=== PATIENT | female | born 1965 | race Caucasian/White ===

== ENCOUNTER → 2020-03-13 | Outpatient (CLI) | payer BC ==
[~2020-03-13] MED LIST: EFFEXOR XR75 MG PO; NEXIUM40 MG PO; NITROSTAT0.4 MG SL; TOPROL XL25 MG PO; VITAMIN D250 MCG PO
== END ==
LOC: ECHO 10:06
DX: R06.02 Shortness of breath (principal); I08.1 Rheumatic disorders of both mitral and tricuspid valves; R93.1 Abnormal findings on diagnostic imaging of heart and coronary circulation
CPT/HCPCS: ECHO; 93306

== ENCOUNTER → 2020-03-15 | Outpatient (CLI) | payer BC | LOC: NM 07:26 → HEART 5 03-27 09:00 | DX: R06.02 Shortness of breath (principal); R07.9 Chest pain, unspecified; R94.39 Abnormal result of other cardiovascular function study | CPT/HCPCS: 78452; A9502 ==

== ENCOUNTER → 2020-05-24 | Outpatient (CLI) | payer BC ==
[2020-05-24 08:18] LABS: HEMOGLOBIN 14.5 gm/dl (12.3-15.3); RED BLOOD COUNT 4.74 M/UL (4.00-5.10); WHITE BLOOD COUNT 5.8 K/UL (4.5-11.0)
[2020-05-24 08:40] LABS: BUN/CREATININE RATIO 24 (0-10)
== END ==
LOC: LAB 07:20
PROVIDERS: Internal Medicine Cardiovascular Disease
DX: I51.89 Other ill-defined heart diseases (principal); I20.0 Unstable angina; R06.02 Shortness of breath
CPT/HCPCS: 36415; 71046; 80048; 85025

== ENCOUNTER → 2020-05-28 | Outpatient (CLI) | payer BC | LOC: CATH 08:11 | DX: I20.8 Other forms of angina pectoris (principal); R06.02 Shortness of breath; I11.9 Hypertensive heart disease without heart failure; E78.5 Hyperlipidemia, unspecified; E55.9 Vitamin D deficiency, unspecified; K21.9 Gastro-esophageal reflux disease without esophagitis; Z82.49 Family history of ischemic heart disease and other diseases of the circulatory system; Z79.899 Other long term (current) drug therapy | CPT/HCPCS: 71045; 99152; 99153; C1751; C1769; C1894; J1644; J2250; J2405; J3010; J7030; Q9967 ==

== ENCOUNTER → 2020-05-30 | Outpatient (CLI) | payer BC | LOC: CT 10:30 | DX: R06.02 Shortness of breath (principal) | CPT/HCPCS: 71250 ==

== ENCOUNTER → 2021-02-26 | Outpatient (CLI) | payer BC ==
[2021-02-26 12:27] LABS: BORDETELLA PARAPERTUSSIS Not Detected (Not Detectd); BORDETELLA PERTUSSIS Not Detected (Not Detectd); CHLAMYDIA PNEUMONIAE Not Detected (Not Detectd); CORONAVIRUS HKU1 Not Detected (Not Detectd); CORONAVIRUS NL63 Not Detected (Not Detectd); CORONAVIRUS OC43 Not Detected (Not Detectd); CORONOAVIRUS 229E Not Detected (Not Detectd); HUMAN METAPNEUMOVIRUS Not Detected (Not Detectd); HUMAN RHINOVIRUS/ENTEROVIRUS Not Detected (Not Detectd); INFLUENZA A Not Detected (Not Detectd); INFLUENZA B Not Detected (Not Detectd); MYCOPLASMA PNEUMONIAE Not Detected (Not Detectd); PARAINFLUENZA VIRUS 1 Not Detected (Not Detectd); PARAINFLUENZA VIRUS 2 Not Detected (Not Detectd); PARAINFLUENZA VIRUS 3 Not Detected (Not Detectd); PARAINFLUENZA VIRUS 4 Not Detected (Not Detectd); RESPIRATORY SYNCYTIAL VIRUS Not Detected (Not Detectd)
[2021-02-26 13:57] LABS: SARS-CoV-2 DETECTED (Not Detectd)
== END ==
LOC: LAB 11:52
PROVIDERS: Physician Assistant
DX: U07.1 COVID-19 (principal); R05.9 Cough, unspecified; R50.9 Fever, unspecified
CPT/HCPCS: 87633

== ENCOUNTER 2021-03-21 15:11 | Emergency (ER) | payer BC ==
[~2021-03-21 15:11] MED LIST changes: -HYDROCODON-ACE1 EAC4 PO
[2021-03-21] MEDS ORDERED: HYDROCODON-ACE1 EAC4 PO (15:58)
== END 2021-03-21 16:18 | disposition home or self-care (01) ==
LOC: ER1 15:11
DX: S52.502A Unspecified fracture of the lower end of left radius, initial encounter for closed fracture (principal); E11.9 Type 2 diabetes mellitus without complications; W19.XXXA Unspecified fall, initial encounter
CPT/HCPCS: 29125; 99283

== ENCOUNTER → 2021-03-21 | Outpatient (CLI) | payer BC ==
[~2021-03-21] MED LIST changes: +HYDROCODON-ACE1 EAC4 PO
== END ==
LOC: RAD 12:48
DX: M25.532 Pain in left wrist (principal); S52.592A Other fractures of lower end of left radius, initial encounter for closed fracture
CPT/HCPCS: 73110

== ENCOUNTER → 2021-07-11 | Outpatient (CLI) | payer BC ==
[~2021-07-11] MED LIST changes: +HYDROCODON-ACE1 EAC4 PO
[2021-07-11 08:21] LABS: HEMOGLOBIN 14.3 gm/dl (12.3-15.3); RED BLOOD COUNT 4.69 M/UL (4.00-5.10)
[2021-07-11 08:42] LABS: BUN/CREATININE RATIO 29 (0-10)
== END ==
LOC: LAB 07:42
PROVIDERS: Internal Medicine
DX: I10 Essential (primary) hypertension (principal)
CPT/HCPCS: 36415; 80048; 80061; 80076; 84443; 85025